=== PATIENT | male | born 1975 | race Two or more races ===

== ENCOUNTER 2024-02-15 09:38 | Outpatient (CLI) | payer OTHER ==
[2024-02-15 10:40] LABS: HEMATOCRIT 39.6 % (39.0-48.0); HEMOGLOBIN 13.3 g/dL (13-16.00); MEAN CELL VOLUME 84.4 fL (80.0-100.00); MEAN CORPUSCULAR HEMOGLOBIN 28.4 pg (27.00-32.0); MEAN CORPUSCULAR HGB CONC 33.6 g/dl (32.0-36.0); PLATELET COUNT 204 K/uL (150-450); RED BLOOD COUNT 4.69 M/uL (4.00-6.00); RED CELL DISTRIBUTION WIDTH 13.3 % (11.5-14.5)
[2024-02-15 11:28] LABS: BILIRUBIN TOTAL 0.69 mg/dL (0.3-1.2); CALCIUM 8.9 mg/dL (8.5-10.1); CREATININE SERUM 0.85 mg/dL (0.70-1.30); FERRITIN 73.3 NG/ML (26-388); GFR 96.62; GLOBULINA 3.1 G/DL (2.4-3.5); POTASSIUM 4.16 mEq/L (3.5-5.1); PROSTATIC SPECIFIC ANTIGEN 0.947 NG/ML (0.010-4.00); T4 FREE 0.91 NG/ML (0.76-1.46); TOTAL PROTEIN 7.1 gm/dL (6.4-8.2); TSH 1.65 uIU/mL (0.358-3.74)
[2024-02-15 11:31] LABS: FOLIC ACID 14.25 ng/ml (4.78-20); VITAMIN D3 25 HYDROXY 20.84 ng/ml (30-120)
[2024-02-16 09:08] LABS: ANTI THYROID PEROXIDASE < 9 IU/mL (0-34); TRANSFERIN 258 mg/dL (177-329)
[2024-02-16 13:07] LABS: hgb a 97.1 % (96.4-98.8); hgb a2 2.9 % (1.8-3.2); hgb f 0 % (0.0-2.0); hgb s 0 % (0.0)
[2024-02-17 10:35] LABS: MANUAL PLATELET COUNT 256
[2024-02-17 10:36] LABS: PLATELET ESTIMATE NORMAL (NORMAL)
[2024-02-17 15:10] LABS: INTRINSIC FACTOR BLOCKING AB 1.1 AU/mL (0.0-1.1)
[2024-02-18 15:07] LABS: PARIETAL CELL ANTIBODIES 17.2 Units (0.0-20.0)
[2024-02-18 19:06] LABS: g6pd quant 249 (127-427); rbc 4.62 x10E6/uL (4.14-5.80)
== END 2024-02-15 09:45 | disposition home or self-care (01) ==
LOC: LAB 09:38
PROVIDERS: ATTEND Internal Medicine Hematology & Oncology
DX: D50.8 Other iron deficiency anemias (principal); R79.9 Abnormal finding of blood chemistry, unspecified; I10 Essential (primary) hypertension; R74.02 Elevation of levels of lactic acid dehydrogenase [LDH]; K76.89 Other specified diseases of liver; D55.0 Anemia due to glucose-6-phosphate dehydrogenase [G6PD] deficiency; D63.8 Anemia in other chronic diseases classified elsewhere; D51.0 Vitamin B12 deficiency anemia due to intrinsic factor deficiency; E03.8 Other specified hypothyroidism; E06.3 Autoimmune thyroiditis; E55.9 Vitamin D deficiency, unspecified; D72.818 Other decreased white blood cell count

== ENCOUNTER 2024-04-13 08:44 | Outpatient (CLI) | payer OTHER ==
[2024-04-13 09:36] LABS: HEMATOCRIT 40.9 % (39.0-48.0); HEMOGLOBIN 13.7 g/dL (13-16.00); MEAN CELL VOLUME 84.2 fL (80.0-100.00); MEAN CORPUSCULAR HEMOGLOBIN 28.2 pg (27.00-32.0); MEAN CORPUSCULAR HGB CONC 33.4 g/dl (32.0-36.0); PLATELET COUNT 240 K/uL (150-450); RED BLOOD COUNT 4.86 M/uL (4.00-6.00); RED CELL DISTRIBUTION WIDTH 12.9 % (11.5-14.5)
[2024-04-13 10:38] LABS: ALBUMIN 3.8 gm/dL (3.4-5.0); BILIRUBIN TOTAL 0.5 mg/dL (0.3-1.2); CALCIUM 9.1 mg/dL (8.5-10.1); CREATININE SERUM 0.79 mg/dL (0.70-1.30); GFR 105.13; POTASSIUM 4.24 mEq/L (3.5-5.1); TOTAL PROTEIN 6.8 gm/dL (6.4-8.2)
[2024-04-13 13:22] LABS: MANUAL PLATELET COUNT 366
[2024-04-13 13:23] LABS: PLATELET ESTIMATE NORMAL (NORMAL)
== END 2024-04-13 08:50 | disposition home or self-care (01) ==
LOC: LAB 08:44
PROVIDERS: ATTEND Internal Medicine Hematology & Oncology
DX: D72.818 Other decreased white blood cell count (principal); I10 Essential (primary) hypertension

== ENCOUNTER 2024-08-09 11:39 | Outpatient (CLI) | payer OTHER | END 2024-08-09 11:44 | disposition home or self-care (01) | LOC: SONOGRAMA 11:39 | DX: M25.511 Pain in right shoulder (principal) ==

== ENCOUNTER 2024-09-29 07:16 | Outpatient (CLI) | payer OTHER ==
[2024-09-29 08:08] LABS: HEMATOCRIT 39.9 % (39.0-48.0); HEMOGLOBIN 13.7 g/dL (13-16.00); MEAN CELL VOLUME 83.3 fL (80.0-100.00); MEAN CORPUSCULAR HEMOGLOBIN 28.5 pg (27.00-32.0); MEAN CORPUSCULAR HGB CONC 34.2 g/dl (32.0-36.0); PLATELET COUNT 172 K/uL (150-450); RED BLOOD COUNT 4.79 M/uL (4.00-6.00); RED CELL DISTRIBUTION WIDTH 13.7 % (11.5-14.5)
[2024-09-29 08:43] LABS: ALBUMIN 3.9 gm/dL (3.4-5.0); BILIRUBIN TOTAL 0.42 mg/dL (0.3-1.2); CALCIUM 8.5 mg/dL (8.5-10.1); CREATININE SERUM 0.92 mg/dL (0.70-1.30); FERRITIN 45.3 NG/ML (26-388); GFR 87.81; GLOBULINA 2.9 G/DL (2.4-3.5); POTASSIUM 4.04 mEq/L (3.5-5.1); TOTAL PROTEIN 6.8 gm/dL (6.4-8.2)
[2024-09-30 13:26] LABS: FOLIC ACID 11.48 ng/ml (4.78-20); VITAMIN D3 25 HYDROXY 96.63 ng/ml (30-120)
== END 2024-09-29 07:20 | disposition home or self-care (01) ==
LOC: LAB 07:16
PROVIDERS: ATTEND Internal Medicine Hematology & Oncology
DX: D72.818 Other decreased white blood cell count (principal); D51.3 Other dietary vitamin B12 deficiency anemia; D51.1 Vitamin B12 deficiency anemia due to selective vitamin B12 malabsorption with proteinuria; E55.9 Vitamin D deficiency, unspecified; I10 Essential (primary) hypertension; D50.8 Other iron deficiency anemias; R79.9 Abnormal finding of blood chemistry, unspecified; R74.02 Elevation of levels of lactic acid dehydrogenase [LDH]; K76.89 Other specified diseases of liver; D51.0 Vitamin B12 deficiency anemia due to intrinsic factor deficiency

== ENCOUNTER 2025-01-28 08:15 | Outpatient (CLI) | payer OTHER | END 2025-01-28 08:23 | disposition home or self-care (01) | LOC: RAD 08:15 | PROVIDERS: ATTEND Physical Medicine & Rehabilitation | DX: M54.51 Vertebrogenic low back pain (principal); M54.31 Sciatica, right side ==